=== PATIENT | female | born 1985 | race Hispanic/Latino ===

== ENCOUNTER 2022-05-27 21:22 | Emergency (ER) | payer OTHER ==
[~2022-05-27] VITALS: Ht 152.4 cm; Wt 61.7 kg
[2022-05-27] MEDS ORDERED: ISENTRESS400 MG PEG (21:56)
[2022-05-27] MEDS ORDERED: ISENTRESS400 MG PO (21:57)
[2022-05-27] MEDS ORDERED: TRUVADA 200 MG1 EACH PO (21:57)
== END 2022-05-27 22:02 | disposition home or self-care (01) ==
LOC: ER 21:29
DX: S61.231A Puncture wound without foreign body of left index finger without damage to nail, initial encounter (principal); W46.0XXA Contact with hypodermic needle, initial encounter; Y92.89 Other specified places as the place of occurrence of the external cause
CPT/HCPCS: 99282